=== PATIENT | female | born 1955 | race Caucasian/White ===

== ENCOUNTER 2016-07-18 15:09 | Inpatient (IN) | payer OTHER ==
[~2016-07-18] VITALS: Ht 167.6 cm; Wt 80.2 kg
[~2016-07-18 15:09] MED LIST: CEPH500C PO
[2016-07-18 18:58] VITALS: BP 111/56; RESP 18
[2016-07-18 19:00] VITALS: BP 111/56; PULSE 74; RESP 18
[2016-07-18] MEDS ORDERED: IBUP-1542 PO (20:03)
[2016-07-18 20:06] VITALS: BP 117/59; RESP 20
[2016-07-18 20:10] VITALS: Ht 167.6 cm; Wt 80.2 kg
[2016-07-18] MEDS ORDERED: VANCOMYCIN IV PER PHARMACY XX SCH (20:30)
[2016-07-18] MEDS ORDERED: ONDANSETRON 4 MG INJ IV PRN (20:30)
[2016-07-18] MEDS ORDERED: VANCOMYCIN 1.75 GM in NS 500 ML IVPB SCH (22:00)
[2016-07-19 05:41] LABS: BASOPHILS % 0.4 % (0.0-2.0); EOSINOPHILS # 0.2 10^3/ul (0.0-0.5); EOSINOPHILS % 2.5 % (0.0-7.0); HEMATOCRIT 35.6 % (37.0-47.0); LYMPHOCYTES # 1.9 10^3/ul (0.8-2.9); LYMPHOCYTES % 20.8 % (15.0-51.0); MEAN CORPUSCULAR HGB CONC 33.6 g/dl (32.0-37.0); MEAN CORPUSCULAR VOLUME 89.2 fl (82.0-101.0); MEAN PLATELET VOLUME 9.1 fl (7.4-10.4); MONOCYTE # 0.6 10^3/ul (0.3-0.9); MONOCYTES % 6.2 % (0.0-11.0); NEUTROPHIL # 6.4 10^3/ul (1.6-7.5); NEUTROPHILS % 70.1 % (39.0-77.0); PLATELET COUNT 248 10^3/UL (140-440); RED BLOOD COUNT 3.99 10^6/ul (4.20-5.40); RED CELL DISTRIBUTION WIDTH 13.7 % (11.5-14.5); UNCORRECTED WBC 9.1 10^3/ul (4.8-10.8); WHITE BLOOD COUNT 9.1 10^3/ul (4.8-10.8)
[2016-07-19 05:47] LABS: ALBUMIN 2.9 g/dl (3.3-4.9)
[2016-07-19 05:48] LABS: POTASSIUM 5.4 mmol/L (3.5-5.1)
[2016-07-19 05:50] LABS: BILIRUBIN,INDIRECT 0.1 mg/dl (0-1.1); BILIRUBIN,TOTAL 0.1 mg/dl (0.2-1.3); CREATININE 0.78 mg/dl (0.44-1.00)
[2016-07-19 05:51] LABS: ALBUMIN/GLOBULIN RATIO 0.96; CALCIUM 8.4 mg/dl (8.4-10.2); PHOSPHORUS 4.3 mg/dl (2.5-4.9); TOTAL PROTEIN 5.9 g/dl (6.1-8.1)
[2016-07-19 05:52] LABS: CHOL/HDL RATIO 5.2 RATIO; MAGNESIUM 2.2 mg/dl (1.7-2.5)
[2016-07-19 06:10] LABS: CONDITION 1
[2016-07-19 07:51] VITALS: BP 116/68; RESP 18
--- NOTE | 2016-07-19 08:16 | HP ---
DATE OF ADMISSION: 07/18/2016 CHIEF COMPLAINT: Left leg swelling and redness. HISTORY OF PRESENT ILLNESS: The patient is a 60-year-old female with a history of previous cellulit is in the past. The patient presents with several days of redness in the left lower extremity on th e ceo region of the leg. The patient states that she was bit by bugs and that she has redness arou nd that. The patient was given Bactrim and permethrin topical cream for infected bug sites and stat es that it did not improve and the pain had gotten worse and noticed that the skin started to bliste r. The patient denies any other significant medical issues. She has reported a history of bug bite s in the past as well. PAST MEDICAL HISTORY: Denies. PAST SURGICAL HISTORY: Denies. HOME MEDICATIONS: No chronic home medications. The patient was given recent Keflex and ibuprofen. ALLERGIES: NO KNOWN DRUG ALLERGIES. FAMILY HISTORY: Denies. SOCIAL HISTORY: Denies any alcohol, tobacco, or drug abuse. REVIEW OF SYSTEMS: A 12-point review of systems negative, except for that as discussed in the HPI. PHYSICAL EXAMINATION VITAL SIGNS: Temperature is 97.6, pulse 73, respiratory rate 20, BP is 117/ , saturation 95% on room air. GENERAL: No acute distress. Alert and oriented. HEAD, EARS, EYES, NOSE, AND THROAT: Normocephalic, atraumatic. CHEST: Clear to auscultation. CARDIOVASCULAR: Regular rate and rhythm. ABDOMEN: Nondistended, nontender, and soft. EXTREMITIES: No clubbing, cyanosis, or edema. Left lower extremity with a dressing and some adjace nt erythema and tenderness to palpation. LABORATORY DATA: White count is 12.1, hemoglobin is 13.2, platelets are 228. Chemistry: Sodium is 142, potassium is 4.5, , glucose is 104. LFTs are within normal limits. CRP is 34.7. ESR is 83. DIAGNOSTIC DATA: Left tibia and fibula series: Loose body projecting into intracondylar notch, pj sorenson was seen on a left knee series from 05/25/2016; consider further evaluation with an MRI of the le ft knee. ASSESSMENT AND PLAN 1. Left lower extremity cellulitis, secondary to bug bite. We will continue with vancomycin IV. T he patient has failed outpatient antibiotics. We will also obtain a wound culture. 2. We will check for human immunodeficiency virus (HIV) antibody, as the patient had an episode of cellulitis in the past, although she states that it was also from a bug bite. 3. Prophylaxis: Ambulation. Dictated By: VERÓNICA VILLEGAS MD BS/NTS Conf#: [id number] DID#: [id number]
[2016-07-19] MEDS: VANCOMYCIN 1 GM in NS 250 ML IVPB SCH ×2 (09:40→21:42)
--- NOTE | 2016-07-19 12:26 | PN ---
Date/Time of Note Date/Time of Note DATE: 07/19/16 TIME: 12:22 Assessment/Plan VTE Prophylaxis VTE Prophylaxis Intervention: other Lines/Catheters [facility] Saline Lock Assessment/Plan Chief Complaint/Hosp Course ASSESSMENT AND PLAN 1. Left lower extremity cellulitis, secondary to bug bite. We will continue with vancomycin IV. Follow up wound culture. check for human immunodeficiency virus (HIV) antibody, 2. Hyperkalemia: Continue IVF, Follow up Electrolyte in am 3. Hyponatremia: Continue IV fluid, follow-up electrolytes in a.m. 4. Malnutrition/hypoalbuminemia: Start Ensure 5. Prophylaxis: Ambulation. Problems: Subjective 24 Hr Interval Summary Free Text/Dictation Patient denies of any chest pain or shortness of Improvement in left lower extremity discomfort No nausea vomiting diarrhea Exam/Review of Systems Vital Signs Vitals Vital Signs Date Time Temp Pulse Resp B/P Pulse Ox O2 Delivery O2 Flow Rate FiO2 07/19/16 07:51 98.0 76 18 116/68 95 07/18/16 19:00 Room Air Intake and Output 07/18/16 07/18/16 07/19/16 15:00 23:00 07:00 Intake Total 420 ml Balance 420 ml Exam General: The patient is well-developed, Not in acute distress. HEENT: Atraumatic, normocephalic. The pupils are equal and round . Neck: Supple with full range of motion. Chest: Normal expansion of the thorax during inspiration Lungs: Clear to auscultation bilaterally Heart: Normal S1-S2, Regular rhythm and rate. Abdomen: Soft , nontender, nondistended , bowel sounds are present. Extremities: Decrease in erythema in left lower extremity, no edema no cyanosis Neurologic: Normal mental status,The patient is awake, alert and oriented . Results Result Diagram: 07/19/16 0440 07/19/16 0440 Results 24 hrs Laboratory Tests Test 07/19/16 04:40 Alanine Aminotransferase (ALT/SGPT) 44 Albumin 2.9 L Albumin/Globulin Ratio 0.96 Alkaline Phosphatase 132 H Anion Gap 13 Aspartate Amino Transf (AST/SGOT) 45 Basophils # 0.0 Basophils % 0.4 Blood Urea Nitrogen 20 Calcium Level 8.4 Carbon Dioxide Level 31 Chloride Level 107 Cholesterol Level 100 Cholesterol/HDL Ratio 5.2 Creatinine 0.78 Direct Bilirubin 0.00 Eosinophils # 0.2 Eosinophils % 2.5 Globulin 3.00 Glucose Level 89 HDL Cholesterol 19 L HIV (1&2) Antibody NEGATIVE Hematocrit 35.6 L Hemoglobin 12.0 Hemoglobin A1c 5.5 Indirect Bilirubin 0.1 LDL Cholesterol, Calculated 45 Lymphocytes # 1.9 Lymphocytes % 20.8 Magnesium Level 2.2 Mean Corpuscular Hemoglobin 30.0 Mean Corpuscular Hemoglobin Concent 33.6 Mean Corpuscular Volume 89.2 Mean Platelet Volume 9.1 Monocytes # 0.6 Monocytes % 6.2 Neutrophils # 6.4 Neutrophils % 70.1 Nucleated Red Blood Cells # 0.0 Nucleated Red Blood Cells % 0.0 Phosphorus Level 4.3 Platelet Count 248 Potassium Level 5.4 H Red Blood Count 3.99 L Red Cell Distribution Width 13.7 Sodium Level 146 H Total Bilirubin 0.1 L Total Protein 5.9 L Triglycerides Level 181 H White Blood Count 9.1 Medications Medications Current Medications Ondansetron HCl (Zofran Inj) 4 mg Q6H PRN IV NAUSEA AND/OR VOMITING; Start 04/23 at 20:30 Morphine Sulfate 2 mg 2 mg Q3H PRN IV PAIN; Start 07/18/16 at 20:30 Vancomycin HCl 1.75 gm/Sodium Chloride 500 ml @ 125 mls/hr ONCE IVPB Last administered on 07/18/16 21:43; Admin Dose 125 MLS/HR; Start 07/18/16 at 22:00 ; Stop 07/19/16 at 01:59 Vancomycin HCl (Vancocin) 250 ml @ 125 mls/hr Q12H IVPB Last administered on 09:40; Admin Dose 125 MLS/HR; Start 07/19/16 at 10:00 BEBETO CEVALLOS MD Jul 19, 2016 12:26
[2016-07-19] MEDS ORDERED: SOD CHLORIDE 0.45% 500 ML IV SCH (12:30)
[2016-07-19] MEDS: morphine 2 MG INJ IV PRN (19:50)
[2016-07-19 20:21] VITALS: BP 130/66; RESP 76
[2016-07-20 05:51] LABS: POTASSIUM 5.4 mmol/L (3.5-5.1)
[2016-07-20 05:53] LABS: CREATININE 0.64 mg/dl (0.44-1.00)
[2016-07-20 05:54] LABS: CALCIUM 8.6 mg/dl (8.4-10.2)
[2016-07-20 06:18] LABS: BASOPHILS % 0.3 % (0.0-2.0); EOSINOPHILS # 0.3 10^3/ul (0.0-0.5); EOSINOPHILS % 3.1 % (0.0-7.0); HEMATOCRIT 36.9 % (37.0-47.0); HEMOGLOBIN 12.5 g/dl (12.0-16.0); LYMPHOCYTES # 2.4 10^3/ul (0.8-2.9); LYMPHOCYTES % 28.3 % (15.0-51.0); MEAN CORPUSCULAR HEMOGLOBIN 30.3 pg (29.0-33.0); MEAN CORPUSCULAR HGB CONC 33.9 g/dl (32.0-37.0); MEAN CORPUSCULAR VOLUME 89.4 fl (82.0-101.0); MEAN PLATELET VOLUME 8.8 fl (7.4-10.4); MONOCYTE # 0.7 10^3/ul (0.3-0.9); MONOCYTES % 7.9 % (0.0-11.0); NEUTROPHIL # 5.1 10^3/ul (1.6-7.5); NEUTROPHILS % 60.4 % (39.0-77.0); PLATELET COUNT 274 10^3/UL (140-440); RED BLOOD COUNT 4.13 10^6/ul (4.20-5.40); RED CELL DISTRIBUTION WIDTH 13.2 % (11.5-14.5); UNCORRECTED WBC 8.4 10^3/ul (4.8-10.8); WHITE BLOOD COUNT 8.4 10^3/ul (4.8-10.8)
[2016-07-20 06:26] LABS: CONDITION 1
[2016-07-20 08:02] VITALS: BP 131/66; RESP 18
[2016-07-20] MEDS: VANCOMYCIN 1 GM in NS 250 ML IVPB SCH (09:39)
[2016-07-20] MEDS: morphine 2 MG INJ IV PRN (09:41)
--- NOTE | 2016-07-20 09:53 | PN ---
Date/Time of Note Date/Time of Note DATE: 07/20/16 TIME: 09:51 Assessment/Plan VTE Prophylaxis VTE Prophylaxis Intervention: ambulation Lines/Catheters IV Catheter Type (from Nrsg): Saline Lock Assessment/Plan Chief Complaint/Hosp Course Assessment and plan 1. Community-acquired cellulitis, likely strep. Stable finish Bactrim treat pain discharge. 2. Prediabetes 3. Hyperkalemia/pseudohyperkalemia Problems: Subjective 24 Hr Interval Summary Free Text/Dictation Moderate pain. No fever toxicity. States she was around cockroaches. Exam/Review of Systems Vital Signs Vitals Vital Signs Date Time Temp Pulse Resp B/P Pulse Ox O2 Delivery O2 Flow Rate FiO2 07/20/16 08:02 98.0 20 18 131/66 92 07/18/16 19:00 Room Air Intake and Output 07/19/16 07/19/16 07/20/16 15:00 23:00 07:00 Intake Total 1590 ml 830 ml Balance 1590 ml 830 ml Exam Respiratory: clear to auscultation Cardiovascular: regular rate and rhythm Gastrointestinal: non-tender, soft Extremities: other (Left coe: Mild erythema. Positive deep tenderness. Wound packed.) Results Result Diagram: 07/20/16 0448 07/20/16 0445 Results 24 hrs Laboratory Tests Test 07/20/16 04:45 07/20/16 04:48 Anion Gap 14 Blood Urea Nitrogen 21 H Calcium Level 8.6 Carbon Dioxide Level 24 Chloride Level 107 Creatinine 0.64 Glucose Level 83 Magnesium Level 2.0 Potassium Level 5.4 H Sodium Level 140 Basophils # 0.0 Basophils % 0.3 Eosinophils # 0.3 Eosinophils % 3.1 Hematocrit 36.9 L Hemoglobin 12.5 Lymphocytes # 2.4 Lymphocytes % 28.3 Mean Corpuscular Hemoglobin 30.3 Mean Corpuscular Hemoglobin Concent 33.9 Mean Corpuscular Volume 89.4 Mean Platelet Volume 8.8 Monocytes # 0.7 Monocytes % 7.9 Neutrophils # 5.1 Neutrophils % 60.4 Nucleated Red Blood Cells # 0.0 Nucleated Red Blood Cells % 0.0 Platelet Count 274 Red Blood Count 4.13 L Red Cell Distribution Width 13.2 White Blood Count 8.4 Medications Medications Current Medications Ondansetron HCl (Zofran Inj) 4 mg Q6H PRN IV NAUSEA AND/OR VOMITING; Start 04/23 at 20:30 Morphine Sulfate 2 mg 2 mg Q3H PRN IV PAIN Last administered on 07/20/16 09:41 ; Admin Dose 2 MG; Start 07/18/16 at 20:30 Vancomycin HCl (Vancocin) 250 ml @ 125 mls/hr Q12H IVPB Last administered on 09:39; Admin Dose 125 MLS/HR; Start 07/19/16 at 10:00 KERLINE PRYOR MD Jul 20, 2016 09:53
--- NOTE | 2016-07-20 09:57 | PDOCDIS ---
Discharge Instructions DIAGNOSIS Discharge Diagnosis: abscess lt coe CONDITION Patient Condition: Good HOME CARE INSTRUCTIONS: Special Diet: REGULAR DIET ACTIVITY: Activity Restrictions: Slowly Increase Activity Do not Drive FOLLOW UP/APPOINTMENTS Appointments Pcp -1KERLINE Ervin MD Jul 20, 2016 09:57
[2016-07-20] MEDS ORDERED: BACTDS PO (09:58)
[2016-07-20] MEDS ORDERED: TRIMETHOPRIM/SULFAMETHOX (DS) TAB PO SCH (10:00)
[2016-07-20] MEDS ORDERED: IBUPROFEN 800 MG TAB PO PRN (10:00)
--- NOTE | 2016-07-20 14:19 | RADRPT ---
PROCEDURE: XR left tibia/fibula. CLINICAL INDICATION: Leg pain TECHNIQUE: Two views available for review. COMPARISON: None available FINDINGS: The osseous structures are normal in mineralization, architecture and alignment. No fractures are i dentified. No osseous lesions are identified. The joints are unremarkable. The soft tissues are u nremarkable. No foreign body identified. IMPRESSION: Unremarkable examination RPTAT: [facility]DB .Roberto Gonzalez MD, MD Date Time Electronically viewed and signed by .Roberto Gonzalez MD, on 07/20/2016 14:19 .B/
--- NOTE | 2016-07-21 04:47 | DS ---
DATE OF ADMISSION: 07/18/2016 DATE OF DISCHARGE: 07/20/2016 PRIMARY CARE PHYSICIAN: Unknown. COMMERCIAL MANAGER: None. DIAGNOSIS ON ADMISSION: Community-acquired cellulitis. DIAGNOSIS AT DISCHARGE: 1. Community-acquired cellulitis, likely streptococcal, left coe. 2. Prediabetes. HOSPITAL COURSE: A 60-year-old female admitted with left coe abscess. Additionally, cellulitis mo re likely. She states she was bit by bugs. When I asked her about bugs, she states there are cockr oaches around her. She does not know who her primary care physician is. She denies any alcohol or tobacco use. No toxicity, fever, chills, nausea, vomiting, diarrhea. Moderate pain but no other is sues. The patient is stable and fit for discharge with Bactrim, Motrin, and followup. I will see i f we can arrange home health to help. If this fails, then the patient will need to visit a general surgeon for incision and drainage. Prediabetes. Continue to monitor. HIV testing negative. The patient was given vancomycin while in the hospital. DISCHARGE PLAN: The patient will be discharged home to follow up with primary in 1 week and if nece [facility] general surgery referral should it fail. DIET: Regular. ACTIVITY: As tolerated. Elevate the limb at discharge. BARRIERS TO DISCHARGE: None. PENDING TESTS: None. FUNCTIONAL STATUS: The patient awake, alert, agrees to the plan of care. ALLERGIES: NONE. CODE STATUS: FULL. REASON FOR ADMISSION: Cellulitis. MEDICATIONS: Motrin p.r.n. NEW MEDICATIONS: 1. Motrin p.r.n. 2. Bactrim-DS 1 tablet twice daily for 12 more days. Dictated By: KERLINE DANG/NTS Conf#: [id number] DID#: [id number]
[2016-07-21] MEDS ORDERED: ENOXAPARIN 40 MG/0.4 ML SYG SC SCH (09:00)
== END 2016-07-20 16:10 | disposition home or self-care (01) | DRG 603 ==
LOC: MS2 18:35
PROVIDERS: ADMIT Student in an Organized Health Care Education/Training Program; ATTEND Student in an Organized Health Care Education/Training Program
DX: L03.116 Cellulitis of left lower limb (principal); E46 Unspecified protein-calorie malnutrition; E87.5 Hyperkalemia; E87.1 Hypo-osmolality and hyponatremia; A49.1 Streptococcal infection, unspecified site; R73.03 Prediabetes
CPT/HCPCS: 73590; 80048; 80053; 80061; 83036; 83735; 84100; 85025; 86703; 87070; J2270; J3370; J7040

== ENCOUNTER 2017-12-20 03:06 | Emergency (ER) | END 2017-12-20 05:23 | disposition home or self-care (01) ==